=== PATIENT | male | born 1980 | race Caucasian/White ===

== ENCOUNTER 2020-05-11 16:09 | Inpatient (IN) | payer BC ==
[~2020-05-11] VITALS: Ht 172.7 cm; Wt 84.8 kg
[2020-05-11 16:14] VITALS: BP 127/81
[2020-05-11] MEDS ORDERED: OMEPRAZOLE 20 M20 M1 PO (16:18)
[2020-05-11 16:35] LABS: ABSOLUTE BASOPHILS 0.1 thou/uL (0.0-0.2); ABSOLUTE EOSINOPHILS 0.2 thou/uL (0.0-0.7); ABSOLUTE LYMPHOCYTES 2.8 thou/uL (0.8-5.3); ABSOLUTE NEUTROPHILS 7.5 thou/uL (1.6-8.1); BASOPHILS 0.8 %; EOSINOPHILS 1.6 %; HEMATOCRIT 33.4 % (42.0-52.0); HEMOGLOBIN 11.3 gm/dL (14.0-18.0); LYMPHOCYTES 24.5 %; MCH 32.2 pg (26.0-34.0); MCHC 33.8 g/dL (28.0-37.0); MCV 95.4 fL (80.0-100.0); MONOCYTES 8.3 %; MPV 7.5 fl. (7.2-11.1); NUCLEATED RBCS 0 /100WBC; PLATELET COUNT* 354 thou/uL (150-400); POLYS 64.8 %; RDW-CV 13.3 % (10.5-14.5); WBC 11.5 thou/uL (4.0-11.0)
[2020-05-11 16:40] LABS: CALCIUM 8.6 mg/dL (8.5-10.1); CREATININE 1.1 mg/dL (0.6-1.3); POTASSIUM 3.6 mmol/L (3.5-5.1)
[2020-05-11 16:44] LABS: ALBUMIN 3.8 g/dL (3.4-5.0); TOTAL BILIRUBIN 0.4 mg/dL (<0.1-1.0); TOTAL PROTEIN 6.9 g/dL (6.4-8.2)
[2020-05-11 17:13] LABS: URINE BLOOD NEGATIVE (Negative); URINE CLARITY CLEAR; URINE COLOR YELLOW; URINE GLUCOSE-RANDOM NEGATIVE (Negative); URINE KETONES NEGATIVE (Negative); URINE LEUKOCYTES-REFLEX NEGATIVE (Negative); URINE NITRITE-REFLEX NEGATIVE (Negative); URINE PROTEIN NEGATIVE (Negative); URINE SPECIFIC GRAVITY >= 1.030 (1.005-1.030); URINE UROBILINOGEN 0.2 E.U./dl (0.2-1.0)
[2020-05-11 17:14] LABS: ICTOTEST (BILI CONFIRMATORY) Negative (Negative); URINE BILIRUBIN 1+ (Negative)
[2020-05-11 20:01] VITALS: BP 116/68
[2020-05-11 20:02] LABS: HEMATOCRIT 24.6 % (42.0-52.0)
[2020-05-11 20:04] LABS: HEMOGLOBIN 8.7 gm/dL (14.0-18.0)
[2020-05-11 23:24] LABS: HEMATOCRIT 22.5 % (42.0-52.0); HEMOGLOBIN 7.9 gm/dL (14.0-18.0)
[2020-05-12] VITALS (34 sets, daily range): BP systolic 97–128; BP diastolic 47–85
[2020-05-12 04:08] LABS: ABSOLUTE EOSINOPHILS 0.1 thou/uL (0.0-0.7); ABSOLUTE MONOCYTES 0.5 thou/uL (0.0-1.2); ABSOLUTE NEUTROPHILS 5.3 thou/uL (1.6-8.1); BASOPHILS 0.4 %; EOSINOPHILS 1.9 %; LYMPHOCYTES 25.1 %; MCH 32.9 pg (26.0-34.0); MCHC 34.7 g/dL (28.0-37.0); MCV 94.8 fL (80.0-100.0); MPV 7.8 fl. (7.2-11.1); NUCLEATED RBCS 0 /100WBC; POLYS 66.6 %; RBC 1.98 mil/uL (4.50-6.00); RDW-CV 13.3 % (10.5-14.5); WBC 7.9 thou/uL (4.0-11.0)
[2020-05-12 04:16] LABS: PLATELET COUNT* 231 thou/uL (150-400)
[2020-05-12 04:17] LABS: HEMATOCRIT 18.7 % (42.0-52.0); HEMOGLOBIN 6.5 gm/dL (14.0-18.0)
[2020-05-12 04:31] LABS: CALCIUM 6.9 mg/dL (8.5-10.1); CREATININE 0.8 mg/dL (0.6-1.3); POTASSIUM 4.2 mmol/L (3.5-5.1)
--- NOTE | 2020-05-12 05:10 | NUR ---
DROPPING HGB AND BP THROUGH THE NIGHT, PT OTHERWISE ASYMPTOMATIC. FIRST OF TWO PRBCs INFUSING. PT COMPLAINS OF NECK AND BACK PAIN THAT IS CHRONIC. MULTIPLE EPISODES OF BRIGHT RED, LIQUID STOOLS. STOOL MORE BROWN IN COLOR THIS AM. OTHERWISE UNEVENTFUL NIGHT. CALL LIGHT WITHIN REACH. WILL CONTINUE MONITORING.
--- NOTE | 2020-05-12 07:15 | NUR ---
TRIPLE LUMEN RIJ CENTRAL LINE PLACED BY DR. MICHAUD. PATIENT TOLERATED WELL. CONSENT IN CHART.
[2020-05-12 09:15] LABS: HEMATOCRIT 23.8 % (42.0-52.0); HEMOGLOBIN 8.3 gm/dL (14.0-18.0)
[2020-05-12 13:04] LABS: HEMATOCRIT 22.7 % (42.0-52.0); HEMOGLOBIN 7.9 gm/dL (14.0-18.0)
--- NOTE | 2020-05-12 15:05 | NUR ---
ICU rounds: GI bleed, plan colon. Hbg down to 6, from 11 last night. Pt resides at home with his . Normally active and independent. No DME. No hx of HH or SNF. Following for dc needs.
--- NOTE | 2020-05-12 16:23 | EKG ---
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 05/12/20 1623 1637 1637 René Colon MD, [facility] /EPI
[2020-05-12 19:13] LABS: HEMATOCRIT 22.7 % (42.0-52.0); HEMOGLOBIN 7.8 gm/dL (14.0-18.0)
[2020-05-13] VITALS (9 sets, daily range): BP systolic 96–129; BP diastolic 50–80
[2020-05-13 05:40] LABS: ABSOLUTE BASOPHILS 0.1 thou/uL (0.0-0.2); ABSOLUTE EOSINOPHILS 0.3 thou/uL (0.0-0.7); ABSOLUTE MONOCYTES 0.7 thou/uL (0.0-1.2); ABSOLUTE NEUTROPHILS 4.1 thou/uL (1.6-8.1); BASOPHILS 0.6 %; HEMATOCRIT 21.9 % (42.0-52.0); HEMOGLOBIN 7.7 gm/dL (14.0-18.0); LYMPHOCYTES 36.5 %; MCH 32.3 pg (26.0-34.0); MCHC 34.9 g/dL (28.0-37.0); MCV 92.4 fL (80.0-100.0); MONOCYTES 8.3 %; MPV 7.5 fl. (7.2-11.1); NUCLEATED RBCS 0 /100WBC; PLATELET COUNT* 195 thou/uL (150-400); POLYS 50.6 %; RBC 2.37 mil/uL (4.50-6.00); WBC 8.2 thou/uL (4.0-11.0)
[2020-05-13 05:50] LABS: CALCIUM 7.1 mg/dL (8.5-10.1); CREATININE 0.7 mg/dL (0.6-1.3); POTASSIUM 3.4 mmol/L (3.5-5.1)
--- NOTE | 2020-05-13 15:21 | NUR ---
pt transfered to room 112 via wheelchair with nursing staff all belonings packed and sent with pt
--- NOTE | 2020-05-13 16:07 | NUR ---
ICU rounds: Colon yesterday, no bloody stools today. Pt moved to room 112
--- NOTE | 2020-05-13 17:30 | NUR ---
PATIENT ALERT AND OREINTED X4. ARRIVED TO ROOM 112 AT APPROX 1520. VSS ON ROOM AIR. NO COMPLAINTS VOICED. UP AD ESTEBAN IN THE TOOM AND ON THE UNIT. CALL LIGHT WITHIN REACH. WILL CONTINUE PLAN OF CARE.
--- NOTE | 2020-05-14 04:31 | NUR ---
PT A&O, VSS ON RA. DENIED PAIN. UP AD ESTEBAN. PT SLEEPING/RESTING QUIETLY THROUGH THE NIGHT. WILL CONTINUE TO MONITOR.
[2020-05-14 05:22] LABS: ABSOLUTE BASOPHILS 0.1 thou/uL (0.0-0.2); ABSOLUTE EOSINOPHILS 0.4 thou/uL (0.0-0.7); ABSOLUTE LYMPHOCYTES 2.8 thou/uL (0.8-5.3); ABSOLUTE MONOCYTES 0.7 thou/uL (0.0-1.2); ABSOLUTE NEUTROPHILS 4.5 thou/uL (1.6-8.1); BASOPHILS 1.1 %; EOSINOPHILS 4.3 %; HEMATOCRIT 21.5 % (42.0-52.0); HEMOGLOBIN 7.5 gm/dL (14.0-18.0); LYMPHOCYTES 33.2 %; MCH 32.7 pg (26.0-34.0); MCV 93.4 fL (80.0-100.0); MPV 7.7 fl. (7.2-11.1); NUCLEATED RBCS 0 /100WBC; PLATELET COUNT* 221 thou/uL (150-400); POLYS 53.4 %; RDW-CV 14.1 % (10.5-14.5); WBC 8.4 thou/uL (4.0-11.0)
[2020-05-14 05:30] LABS: CALCIUM 7.7 mg/dL (8.5-10.1); CREATININE 0.8 mg/dL (0.6-1.3); POTASSIUM 3.8 mmol/L (3.5-5.1)
[2020-05-14 07:52] VITALS: BP 140/83
[2020-05-14 08:00] VITALS: BP 111/59
[2020-05-14 09:30] VITALS: BP 140/83
[2020-05-14] MEDS ORDERED: IRON325 PO (10:01)
--- NOTE | 2020-05-14 10:34 | NUR ---
PATIENT ALERT AND ORIENTED X4. VSS ON ROOM AIR. NO COMPLAINTS OF PAIN OR NAUSEA. PATIENT UP AD ESTEBAN IN THE ROOM AND WALKING THE UNIT. RIGHT IJ DISCONTINUED. PATIENT DISCHARGED AT 1030 WITH ALL PERSONAL BELONGINGS, PRESCRIPTION AND DISCHARGE INFORMATION.
--- NOTE | 2020-05-14 13:42 | CON ---
[address] [address] CONSULTATION Name: KANDIS VAUGHAN Room: [address] IN .R.#: [id number] Admission: 05/11/20 Attend Phys: Chris Pedro MD Discharge: 05/14/20 Date of : 76 Report #: [id number] THIS REPORT FOR: //name// cc: [facility] - [facility] physician unknown [facility] - Clinic physician unknown ~ THIS REPORT FOR: //name// CC: Chris Pedro [facility] unknown DATE OF SERVICE: 05/12/2020 HISTORY OF PRESENT ILLNESS: This is a pleasant 39-year-old gentleman who is presenting for evaluation of hematochezia. The patient reports he was in his usual state of health yesterday when he began having bowel movements with blood in them. This was followed by several episodes of bright red blood per rectum. The patient denies any pain in the rectum. Denies any abdominal pain. The patient does report having lightheadedness and dizziness. He has had some nausea, but denies any vomiting. The patient denies similar episodes in the past and has never had a colonoscopy. PAST MEDICAL HISTORY: Gastroesophageal reflux disease. PAST SURGICAL HISTORY: Tonsillectomy. SOCIAL HISTORY: The patient smokes about half pack per day, has been doing that for 14 years, quit alcohol 12 years back. Denies recreational drug use. FAMILY HISTORY: The patient's mother was diagnosed with colon cancer in her 60s, probably. REVIEW OF SYSTEMS: A comprehensive 10-point review of systems is negative except for what was mentioned in the HPI. PHYSICAL EXAMINATION: GENERAL: The patient is alert, awake, oriented x 3. HEENT: Pupils are equal, round, reactive to light and accommodation. Mucous membranes are moist. There is no congestion. LUNGS: Clear to auscultation bilaterally. ABDOMEN: Soft. There is no distention, guarding, or rigidity. EXTREMITIES: Warm, well perfused. LABORATORY DATA: Sodium 144, potassium 4.0, chloride 111, bicarbonate 25, BUN 13, and creatinine 0.8. Hemoglobin on presentation 11.3, dropped to 6.5 overnight and after 2 units of blood transfusion was increased to 8.3, and hematocrit 33.4 on presentation, dropped [place] 18.7. [place] [address] CONSULTATION Name: KANDIS VAUGHAN Room: [address]#: [id number] Admission: 05/11/20 Attend Phys: Chris Pedro MD Discharge: 05/14/20 Date of : 76 Report #: [id number] IMAGING: CT abdomen and pelvis: Prominent active bleeding in the rectum as well. Called Dr. Del Valle in the ER. ASSESSMENT AND PLAN: A pleasant 39-year-old male who is presenting with review of large-volume hematochezia, mild hypotension, and significant drop in hemoglobin. We will proceed with colonoscopy and make further recommendations based on the results of the colonoscopy. Thank you for this consultation. <ELECTRONICALLY SIGNED> By: Paulino Whittington MD 05/14/20 1342 [id number] Whittington MD /nt
== END 2020-05-14 10:30 | disposition home or self-care (01) | DRG 378 ==
LOC: M.ERS 16:09 → M.ICU 18:51 → M.TBA-ER 18:51 → M.ICU 20:11 → M.ORTHSURG 05-13 15:25
PROVIDERS: Emergency Medicine; Emergency Medicine Emergency Medical Services; ADMIT Internal Medicine; ATTEND Internal Medicine
PROC: 0D5P8ZZ Destruction of Rectum, Via Natural or Artificial Opening Endoscopic (ICD-10-PCS; principal; 2020-05-12)
PROC: B543ZZA Ultrasonography of Right Jugular Veins, Guidance (ICD-10-PCS; principal; 2020-05-12)
PROC: 05HM33Z Insertion of Infusion Device into Right Internal Jugular Vein, Percutaneous Approach (ICD-10-PCS; principal; 2020-05-12)
PROC: 30233N1 Transfusion of Nonautologous Red Blood Cells into Peripheral Vein, Percutaneous Approach (ICD-10-PCS; principal; 2020-05-12)
DX: K92.2 Gastrointestinal hemorrhage, unspecified (principal); D62 Acute posthemorrhagic anemia; K63.81 Dieulafoy lesion of intestine; Z20.828 Contact with and (suspected) exposure to other viral communicable diseases; K21.9 Gastro-esophageal reflux disease without esophagitis; I95.9 Hypotension, unspecified; F17.210 Nicotine dependence, cigarettes, uncomplicated; Z80.0 Family history of malignant neoplasm of digestive organs; Z79.899 Other long term (current) drug therapy; Z90.49 Acquired absence of other specified parts of digestive tract